=== PATIENT | female | born 1990 | race Caucasian/White ===

== ENCOUNTER 2018-11-05 05:08 | Inpatient (IN) ==
--- NOTE | 2018-10-31 09:57 | EKG Report ---
Test Performed on : 10/31/2018 09:38:27 AM Test Reason : PAT Blood Pressure : / mmHG Vent. Rate : 065 BPM Atrial Rate : 065 BPM P-R Int : 128 ms QRS Dur : 082 ms QT Int : 388 ms P-R-T Axes : -22 028 002 degrees QTc Int : 403 ms Normal sinus rhythm. Normal ECG No previous ECGs available Confirmed by Katrina KILGORE, Kavin Johnson ([id number]) on 11/01/2018 11:59:55 AM
[2018-10-31 10:22] LABS: BASO# 0.02 X1000 (0.0-0.2); BASO% 0.2 % (0.0-0.8); EOS# 0.16 X1000 (0.0-0.7); EOS% 1.4 % (0.0-10.0); HEMATOCRIT 44.2 % (37.0-47.0); HEMOGLOBIN 14.7 g/dL (12.0-16.0); IMM GRAN# 0.02 X1000 (0.0-0.04); IMM GRAN% 0.2 % (0.0-0.5); LYMPH# 1.31 X1000 (1.2-3.4); LYMPH% 11.8 % (20.5-51.1); MCH 34.9 PG (27-31); MCHC 33.3 g/dL (33-37); MONO# 0.61 X1000 (0.11-0.59); MONO% 5.5 % (1.7-9.3); MPV 9.6 FL (7.4-10.4); NEUT% 80.9 % (42.2-75.2); PLT 326 X1000 (130-400); RBC 4.21 XMIL (4.2-5.4); RDW 11.2 % (11.5-14.5); WBC 11.12 X1000 (4.8-10.8)
[2018-11-05] MEDS ORDERED: PEPCID ONE (05:37)
[2018-11-05] MEDS ORDERED: KEFZOL 1 GM/D5W 1 GM/50 ML IVPB ONE (05:37)
[2018-11-05] MEDS ORDERED: LR 1,000 ML ONE ×3 (05:37→09:46)
[2018-11-05] MEDS ORDERED: REGLAN ONE (05:37)
[2018-11-05] MEDS ORDERED: FENTANYL ONE ×2 (06:08→07:27)
[2018-11-05] MEDS ORDERED: VERSED ONE (06:08)
[2018-11-05] MEDS ORDERED: DIPRIVAN 1% ONE (06:09)
[2018-11-05] MEDS ORDERED: MARCAINE 0.25% PF/EPI 1:200,000 ONE (06:28)
[2018-11-05] MEDS ORDERED: SODIUM CHLORIDE 0.9% ONE (06:29)
[2018-11-05] MEDS ORDERED: VALIUM ONE (06:47)
[2018-11-05] MEDS ORDERED: DECADRON ONE (07:52)
[2018-11-05] MEDS ORDERED: APRESOLINE ONE (07:52)
[2018-11-05] MEDS ORDERED: ZOFRAN ONE (07:52)
[2018-11-05] MEDS ORDERED: QUELICIN (DOSE) ONE (07:52)
[2018-11-05] MEDS ORDERED: XYLOCAINE-MPF 2% ONE (07:52)
--- NOTE | 2018-11-05 08:41 | Diag Imaging Result Doc PS360 ---
OPERATIVE CHOLANGIOGRAM - 11/05/2018 INDICATION: GALLBLADDER DX TECHNIQUE: The exam was performed by the patient's surgeon. Total fluoroscopy time was 48 seconds. One image was obtained. COMPARISON: None FINDINGS: Contrast was apparently infused into the cystic duct. Only a portion of the common bile duct is visible. No obvious obstruction. IMPRESSION: Partial opacification of the common bile duct. Electronically signed by Teddy Carbajal 11/05/2018 8:38 AM
[2018-11-05] MEDS: DILAUDID ONE ×4 (08:51→09:16)
[2018-11-05] MEDS ORDERED: DEMEROL ONE (09:17)
[2018-11-05] MEDS ORDERED: NORCO-7.5 ONE (09:55)
[2018-11-05] MEDS: LR 1,000 ML IV SCH (10:25)
[2018-11-05] MEDS: MORPHINE IV PRN ×2 (12:43→21:40)
[2018-11-05] MEDS: NORCO-7.5 PO PRN ×3 (14:35→21:41)
[2018-11-05] MEDS: NICODERM PATCH TD SCH (14:59)
--- NOTE | 2018-11-05 21:09 | OPERATIVE NOTE ---
PROCEDURE DATE: 11/05/2018 POSTOPERATIVE DIAGNOSIS: Symptomatic cholelithiasis. POSTOPERATIVE DIAGNOSIS: Symptomatic cholelithiasis with purulent cholecystitis PROCEDURE PERFORMED: Laparoscopic cholecystectomy with cholangiogram. ESTIMATED BLOOD LOSS: 20 mL. SPECIMENS: Gallbladder. ANESTHESIA: General. INDICATIONS: A 28-year-old female who has had colicky epigastric abdominal discomfort for some time. Ultrasound shows stones. OPERATIVE FINDINGS: There was a densely inflamed gallbladder with thickened rind, purulent bile within the lumen, and a very foreshortened cystic duct with impacted stone within the infundibulum of the gallbladder. Interpretation of intraoperative cholangiogram showed contrast flow through a short segment of cystic duct that ran parallel to the common bile duct, with filling of the common duct and common hepatic artery. Due to extravasation, we could not get fill of the duodenum. OPERATIVE NOTE: Risks, benefits, and alternatives were discussed with the patient, and she consented to the procedure. Seen preoperatively. Surgical site was confirmed. Was taken to the operating room, placed supine position. General anesthesia induced without complication. All bony prominences were padded. Her abdomen was prepped with chlorhexidine solution, draped in the usual fashion. After time-out, a curvilinear infraumbilical incision was made and carried down to the fascia. The fascia was incised along the midline. The abdomen was entered in a controlled fashion. A 12 mm Vernon trocar was placed under direct visualization. We then placed 3 trocars 5 mm, 1 at the epigastrium, 1 in the midclavicular line off the costal margin, and 1 laterally. The gallbladder was grasped and retracted cephalad. Just through retraction, an opening was made in the gallbladder and purulent bile was expressed. We suctioned this till clear. There were dense omental adhesions that we took down, exposing the infundibulum, which was distorted due to a large stone impacted within the neck, but we were able to retract this then to the patient's right and began scoring the peritoneum and dissecting out the lower third of the gallbladder. Through retraction, we noted avulsion of the infundibulum off the cystic duct. There was no bile leakage from the distal cystic duct, and we were able to identify an opening here. Placed our cholangiogram catheter and confirmed that this was, in fact, an opening in the cystic duct and not the common bile duct. There did not appear to be bile drainage in a retrograde flow, but given the proximity and the densely adherent nature to the common bile duct, we elected to not pursue any clamps as we risked injury to the common duct and right hepatic, as she had a very low bifurcation it appeared on her cholangiogram. Removed the gallbladder from the gallbladder fossa. There were openings made. There was no spillage of stones, but there was purulent bile that was suctioned out. It was placed in EndoCatch bag. There was oozing from the gallbladder fossa, some of which was cauterized, one of which area appeared to course along what is most likely a posterior sector hepatic artery. Prothrombin procoagulant Maria Del Rosario powder was placed in the bed, fully containing hemostasis. Given the purulent nature and inability to fully close the cystic duct, we placed a Bridger drain in the gallbladder fossa, secured it with 2-0 nylon. We noted no bile leakage and no bleeding. Removed remaining trocars, deflated the abdomen, and brought the gallbladder out through the umbilical incision. Closed the fascia with interrupted 0 Vicryl sutures. Skin was closed with 4-0 Monocryl. Counts were correct. I spoke with the family. We plan to keep her tonight for observation. She may need ERCP if bile leak is noted. cc: Mandy Carmen MD
[2018-11-05] MEDS: ZANTAC PO SCH (21:40)
[2018-11-05] MEDS: ZOFRAN IV PRN (22:23)
[2018-11-06] MEDS: MORPHINE IV PRN ×5 (02:27→21:38)
[2018-11-06] MEDS: ZOFRAN IV PRN ×5 (02:28→21:38)
[2018-11-06 06:56] LABS: AGAP 12; CHLORIDE 103 mmol/L (98-107); GLUCOSE 106 mg/dL (70-104); POTASSIUM 4.3 mmol/L (3.5-5.1); SODIUM 137 mmol/L (136-145); TCO2 22 mmol/L (25-35)
[2018-11-06 06:57] LABS: ALB/GLOB RATIO 1.3; ALBUMIN 3.3 g/dL (3.5-5.0); ALKALINE PHOSPHATASE 94 U/L (32-104); BUN 7 mg/dL (8-22); CALCIUM 8.6 mg/dL (8.8-10.2); COSMO 272; CREATININE 0.5 mg/dL (0.5-0.9); ESTIMATED GFR > 60; GOT 33 U/L (10-30); GPT 31 U/L (10-36); TOTAL BILIRUBIN 1.08 mg/dL (0.20-1.00); TOTAL PROTEIN 5.8 g/dL (6.3-8.3)
[2018-11-06 07:04] LABS: BASO# 0.01 X1000 (0.0-0.2); BASO% 0.1 % (0.0-0.8); HEMATOCRIT 38.4 % (37.0-47.0); LYMPH# 1.58 X1000 (1.2-3.4); LYMPH% 12.5 % (20.5-51.1); MCH 36.1 PG (27-31); MCHC 33.9 g/dL (33-37); MCV 106.7 FL (81-99); MONO# 0.88 X1000 (0.11-0.59); MPV 9.9 FL (7.4-10.4); NEUT# 10.14 X1000 (1.4-6.5); NEUT% 80.4 % (42.2-75.2); PLT 305 X1000 (130-400); RDW 11.7 % (11.5-14.5); WBC 12.61 X1000 (4.8-10.8)
[2018-11-06] MEDS: NICODERM PATCH TD SCH (08:57)
[2018-11-06] MEDS: PERIDEX MT SCH ×2 (08:58→21:43)
[2018-11-06] MEDS: ZANTAC PO SCH ×2 (09:03→21:43)
--- NOTE | 2018-11-06 13:11 | GENERAL SURGERY PROGRESS NOTE ---
DATE: 11/06/2018 SUBJECTIVE: Doing okay, sore but appropriate, no fevers. OBJECTIVE: VITAL SIGNS: Pulse in the low 100s. Blood pressure 140/100, oxygen 98%. General: She is alert. No jaundice. Abdomen: Soft, appropriately tender. DANIEL drain is bilious . LABORATORY DATA: White count 12. Hematocrit is 38. Creatinine 0.5, bilirubin is 1.0, AST and ALT 33 and 31, alkaline phosphatase 94. ASSESSMENT AND PLAN: This is a 28-year-old female with purulent cholecystitis. She had a densely adherent cystic duct to the common bile duct and we elected to not pursue definitive closure of this. She has a drain controlling expected bile leak. I have discussed the plan with the patient and Shaun. He plans for ERCP this afternoon to help resolve this is expected leak from a patent cystic duct. Her cholangiogram is okay. We did not get good opacification distally, but I do not suspect that she has distal obstruction. cc: Mandy Carmen MD
--- NOTE | 2018-11-06 14:21 | GASTROENTEROLOGY CONSULTATION ---
DATE: 11/06/2018 REASON FOR CONSULTATION: Request for ERCP. HISTORY OF PRESENT ILLNESS: This is a 28-year-old, female who had laparoscopic cholecystectomy on 11/05/[address] Carmen. Findings showed densely inflamed gallbladder with thickened rind, purulent bile within the lumen, and shortened cystic duct with impacted stone within the infundibulum of the gallbladder. Today, at the time of my evaluation, the patient was awake, in no acute distress. She does report some mild abdominal pain. She currently has a DANIEL drain in place. Her father is at the bedside. PAST MEDICAL HISTORY: Hypertension. PAST SURGICAL HISTORY: Laparoscopic cholecystectomy on 11/04/2018, bilateral breast reduction, and section x1. SOCIAL HISTORY: Alcohol use about twice a week. Tobacco use, half a pack daily. ALLERGIES: No known drug allergies. HOME MEDICATIONS: Tylenol 500 mg every 6 hours as needed, Prinivil 10 mg daily, Zofran every 6 hours as needed, Zantac 150 mg twice a day. REVIEW OF SYSTEMS: Per history of present illness. PHYSICAL EXAMINATION: Vital Signs: Temperature 98.3 degrees, pulse was 115, respirations 16, blood pressure 135/90. General: The patient is awake and alert, in no acute distress. Her father is at the bedside. Respiratory: Lung sounds essentially clear. Cardiovascular: Regular rate and rhythm. Abdomen: Soft. Post operative tenderness with palpation. DANIEL drain with bilious contents. DIAGNOSTIC RESULTS: Laboratory: Hematology: WBC 12.61, hemoglobin 13.0, hematocrit 38.4, MCV 106.7, platelets 305,000. Chemistry: Sodium 137, potassium 4.3, chloride 103, CO2 of 22, BUN 7, creatinine 0.5, glucose 106, calcium 8.6. Total bilirubin 1.08, AST 33, ALT 31, alkaline phosphatase 94. Serum was negative. Operative report from laparoscopic cholecystectomy on 11/05/2018 showed inflamed gallbladder, purulent bile within the lumen, and a shortened cystic duct with impacted stone with inability to close the cystic duct. ASSESSMENT AND PLAN: 1. Recent cholecystectomy. 2. Bile leak, unable to close the cystic duct during surgery, requesting endoscopic retrograde cholangiopancreatography and stent placement. 3. I have discussed endoscopic retrograde cholangiopancreatography procedure along with placing a stent. I have discussed the risks versus benefits of the procedure with the patient. I have also given her an information brochure on the procedure. We will plan to proceed with endoscopic retrograde cholangiopancreatography today, most likely placing a stent. Patient is aware that she will have to have the stent removed in the near future. 4. Further plans will be made according to findings. I have discussed this case with Dr. Dunn. Thank you for this consultation. Dictated by NAFISA Cabrera for Nomi Dunn MD cc: NAFISA Cole MD R. Tyler Harney, MD
[2018-11-06] MEDS: ZOSYN 3.375 GM in NS 50 ML IV SCH ×2 (14:22→21:43)
[2018-11-06] MEDS ORDERED: VERSED ONE (14:54)
[2018-11-06] MEDS ORDERED: DIPRIVAN 1% ONE ×2 (15:11→15:50)
[2018-11-06] MEDS ORDERED: INDOCIN ONE (15:37)
--- NOTE | 2018-11-06 16:24 | Diag Imaging Result Doc PS360 ---
EXAM: ERCP-BILIARY AND PANCREATIC 11/06/2018 HISTORY: bile leak TECHNIQUE: Seven images COMMENT: Apparently there is passage of a stone basket and placement of a stent in the common bile duct. IMPRESSION: Stent placement. Electronically signed by Nick Arvizu 11/06/2018 4:22 PM
--- NOTE | 2018-11-06 19:18 | OPERATIVE NOTE ---
PROCEDURE DATE: 11/06/2018 PROCEDURE: ERCP and stent placement. PREOPERATIVE DIAGNOSIS: Bile leak, status post cholecystectomy. POSTOPERATIVE DIAGNOSIS: 1. Bile leak status post cholecystectomy. 2. Normal pancreatogram. MEDICATION: MAC as per Anesthesia. SCOPE USED: Pentax duodenal scope. HISTORY: This is a 28-year-old white female who has undergone laparoscopic cholecystectomy and there was question of possible bile leak since she has been having bile colored drainage through the DANIEL drain. ERCP was done for stent placement. PROCEDURE DETAILS: Informed consent was obtained from the patient. The procedure, risks, benefits, alternatives were explained in layman's terms. Risks of, but not limited to bleeding, perforation, aspiration, pneumonia and pancreatitis were explained. She understood. All the pertinent questions answered and she agreed to proceed. Patient was brought to the endoscopy unit and premedicated as per Anesthesia. After adequate sedation, while she was lying in left lateral left lateral position the duodenoscope was introduced into the posterior pharynx and advanced manually into the esophagus, through the esophagus, it was advanced to the stomach. Stomach was insufflated. Pylorus identified. Scope was then passed through the pylorus into the duodenal bulb, and then second portion duodenum which appeared to be normal. The major papilla was identified. Using the sphincterotome with the help of a guidewire, first the pancreatic duct was cannulated contrast injected. Pancreatogram revealed no pathology. Then, the common bile duct was cannulated. After deep cannulation, contrast injected. Cholangiogram obtained which revealed no filling defect, but there was a leak right at the cystic duct stump. Intrahepatic duct and the common bile duct otherwise were normal. At this point, I went ahead and proceeded with stent placement. A 10-Zambian, 5 cm long stent that was placed in the distal common bile duct. Good drainage was noted. The scope was then removed. Patient tolerated procedure. No complications noted. Patient was then transferred to the recovery area in a stable condition. IMPRESSION: 1. Bile leaks at the cystic duct stump. The [*]stent placed in the distal common bile duct with good drainage. 2. Pancreatogram normal. PLAN/RECOMMENDATIONS: Continue antibiotic. Continue to observe in the hospital. Once she is stable, she can be discharged and she will follow up at the office in a few weeks. She will have the stent removed in 4-6 weeks. I have explained the findings and plan to the patient's family members. They understood. All the pertinent questions answered. cc: MD Mandy Parmar MD
[2018-11-06] MEDS: LR 1,000 ML IV SCH (20:59)
[2018-11-07] MEDS: MORPHINE IV PRN ×6 (01:35→22:30)
[2018-11-07] MEDS: ZOFRAN IV PRN ×6 (01:36→22:30)
[2018-11-07] MEDS: LR 1,000 ML IV SCH ×2 (03:23→05:40)
[2018-11-07] MEDS: ZOSYN 3.375 GM in NS 50 ML IV SCH ×4 (03:26→20:14)
[2018-11-07 08:12] LABS: AGAP 11; ALB/GLOB RATIO 1.3; ALKALINE PHOSPHATASE 87 U/L (32-104); BUN 8 mg/dL (8-22); CALCIUM 8.3 mg/dL (8.8-10.2); CHLORIDE 104 mmol/L (98-107); COSMO 270; CREATININE 0.4 mg/dL (0.5-0.9); ESTIMATED GFR > 60; GLUCOSE 96 mg/dL (70-104); GOT 42 U/L (10-30); GPT 27 U/L (10-36); POTASSIUM 3.8 mmol/L (3.5-5.1); SODIUM 136 mmol/L (136-145); TCO2 21 mmol/L (25-35); TOTAL BILIRUBIN 1.56 mg/dL (0.20-1.00); TOTAL PROTEIN 5.4 g/dL (6.3-8.3)
[2018-11-07 08:20] LABS: LIPASE 2077 U/L (13-60)
[2018-11-07] MEDS: NICODERM PATCH TD SCH (10:04)
[2018-11-07] MEDS: PERIDEX MT SCH ×2 (10:04→20:14)
[2018-11-07] MEDS: ZANTAC PO SCH ×2 (10:05→20:15)
[2018-11-07] MEDS: NORCO-7.5 PO PRN ×3 (12:09→20:14)
--- NOTE | 2018-11-07 13:26 | GASTROENTEROLOGY PROGRESS NOTE ---
DATE: 11/07/2018 SUBJECTIVE: Patient reports having nausea and vomiting during the night. She is complaining of abdominal pain. She had a ERCP yesterday that showed bile leaks at the cystic duct stump. A stent was placed in the common bile duct. Pancreatogram was normal. OBJECTIVE: Vital Signs: Temperature 98.8 degrees, pulse 101, respirations 20, blood pressure 122/72. Generally: Patient is awake and alert. She is complaining of nausea, vomiting and abdominal pain. Abdomen: Tender. Laparoscopic incisions intact. DANIEL drain in place. LABORATORY: Chemistry: Sodium 136, potassium 3.8, chloride 104, BUN 8, creatinine 0.4, total bilirubin 1.56. AST 42, ALT 2. Alkaline phosphatase 87, lipase was 2077. ASSESSMENT AND PLAN: 1. Bile leak status post cholecystectomy, endoscopic retrograde cholangiopancreatography and stent placement done yesterday 11/06/2018. 2. Pancreatitis post endoscopic retrograde cholangiopancreatography. We will move from clear liquids to NPO except for ice chips and sips of water. Continue symptomatic treatment and supportive care. We will continue to follow. Other plans to be made according to her progress. Once discharged, she will need to follow up in the office to have her stent removed in 4 to 6 weeks. I have discussed this case with Dr. Dunn. Dictated by NAFISA Cabrera for Nomi Dunn MD cc: NAFISA Cole MD R. Tyler Harney, MD
--- NOTE | 2018-11-07 19:01 | GENERAL SURGERY PROGRESS NOTE ---
DATE: 11/07/2018 SUBJECTIVE: She is having some epigastric pain radiating to her back. LABORATORY DATA: Lipase was elevated. LFTs are about the same, maybe a slight increase in bilirubin at 1.56. White count was not obtained this morning. OBJECTIVE: Drainage has become more serosanguineous. Abdomen is otherwise soft. She is afebrile. Occasional low-grade tachycardia. ASSESSMENT AND PLAN: A 28-year-old female with purulent cholecystitis, very short segment of cystic duct related to a distorted infundibulum and impacted stone within the gallbladder neck; dense inflammatory changes between the cystic duct and common bile duct, limiting ability to close. She is anticipated to develop bile in her drain postoperatively, and has undergone an endoscopic retrograde cholangiopancreatography now with some postendoscopic retrograde cholangiopancreatography pancreatitis. We will continue her on bowel rest, intravenous fluids, monitoring today. If she feels better, plan for maybe home tomorrow. We do have her on Zosyn, pain control. She is out of bed and ambulating. cc: Mandy Carmen MD
[2018-11-08] MEDS: NORCO-7.5 PO PRN ×3 (00:22→13:05)
[2018-11-08] MEDS: LR 1,000 ML IV SCH ×3 (00:43→05:47)
[2018-11-08] MEDS: ZOSYN 3.375 GM in NS 50 ML IV SCH ×2 (02:24→08:20)
[2018-11-08] MEDS: MORPHINE IV PRN ×3 (02:25→13:11)
[2018-11-08] MEDS: ZOFRAN IV PRN ×3 (02:30→10:30)
[2018-11-08 06:57] LABS: AGAP 11; ALBUMIN 2.9 g/dL (3.5-5.0); BUN 4 mg/dL (8-22); CALCIUM 8.2 mg/dL (8.8-10.2); CHLORIDE 101 mmol/L (98-107); COSMO 266; CREATININE 0.4 mg/dL (0.5-0.9); ESTIMATED GFR > 60; GLUCOSE 79 mg/dL (70-104); POTASSIUM 3.7 mmol/L (3.5-5.1); SODIUM 135 mmol/L (136-145); TCO2 23 mmol/L (25-35); TOTAL BILIRUBIN 1.31 mg/dL (0.20-1.00); TOTAL PROTEIN 5.7 g/dL (6.3-8.3)
[2018-11-08 06:58] LABS: ALKALINE PHOSPHATASE 85 U/L (32-104); AMYLASE 881 U/L (20-200); GOT 25 U/L (10-30); GPT 26 U/L (10-36)
[2018-11-08 07:03] LABS: LIPASE 961 U/L (13-60)
[2018-11-08] MEDS: ZANTAC PO SCH (08:20)
[2018-11-08] MEDS: PERIDEX MT SCH (08:20)
[2018-11-08 11:58] VITALS: BP 147/87
[2018-11-08] MEDS: NICODERM PATCH TD SCH (12:50)
--- NOTE | 2018-11-08 15:21 | GASTROENTEROLOGY PROGRESS NOTE ---
DATE: 11/08/2018 At the time of my evaluation, patient was walking in the hallway. She states her symptoms have improved. She was able to tolerate small amount of full liquid diet this morning. OBJECTIVE: Vital Signs: Temperature 99.1 degrees, pulse 100, respirations 18, blood pressure 147/87. General: Patient is awake, alert, in no acute distress. She is walking in the hallway. LABORATORY: Total bilirubin 1.31, AST 25, ALT 26, alkaline phosphatase 85, amylase 881. Lipase 961. ASSESSMENT AND PLAN: 1. Bile leak status post cholecystectomy. ERCP done with stent placement on 11/06/2018. 2. Elevated amylase and lipase, pancreatitis post ERCP. The patient was held NPO yesterday. Her symptoms have improved. Amylase and lipase are still elevated but patient symptoms have improved. She is currently tolerating a full liquid diet. Continue to follow a bland diet for the next several days. She will need to slowly advance her diet related to her symptoms. I have recommended she follow up with us as an outpatient in 2 to 3 weeks and we will anticipate ERCP with stent removal in 4 to 6 weeks. She may be discharged today depending on Dr. Carmen's recommendations. We will continue to follow during her hospital course and follow up with her after discharge. I have discussed this case with Dr. Dunn. Dictated by NAFISA Cabrera for Nomi Dunn MD cc: NAFISA Cole MD R. Tyler Harney, MD
--- NOTE | 2018-11-08 22:16 | DISCHARGE SUMMARY ---
ADMISSION DATE: 11/07/2018 DISCHARGE DATE: 11/08/2018 ADMITTING DIAGNOSIS: Symptomatic cholecystitis. DISCHARGE DIAGNOSIS: Purulent cholecystitis. PROCEDURE PERFORMED: 1. Laparoscopic cholecystectomy with cholangiogram. 2. Endoscopic retrograde cholangiopancreatography, Dr. Dunn. HISTORY OF PRESENT ILLNESS: This is a 28-year-old female who has had persistent, severe abdominal pain over several weeks. She came to my office, found to have gallstones, and was taken electively for cholecystectomy. HOSPITAL COURSE: Patient was seen preoperatively and was cleared by Anesthesia for the above procedure. For details, please see dictated operative note. Postoperatively, she was admitted, given the purulent nature of her cholecystitis, for ongoing antibiotic therapy. She also had an intentionally nonclosed cystic duct due to her anatomy and plans for ERCP. She did have some bile that was in her drain. Bilirubin remained about normal. AST and ALT downtrended. She underwent her ERCP on the day following her operation. The following day, she had some abdominal discomfort and elevation of her lipase, consistent with pancreatitis, and that improved with bowel rest. She tolerated a diet. She had no further fevers. Her abdomen was soft and incision was intact. DANIEL drain mostly serosanguineous with some bile tinge, but her bilirubin was down to 1.31 with lipase down to 961. AST, ALT, and alkaline phosphatase were normal. She was felt safe for discharge home as she was feeling well. She can see me back in the office Sunday or Sunday to evaluate for drain removal. I have given her a prescription for Percocet, Colace, and Zofran. Discharge instructions were given in written and verbal formats. cc: Mandy Carmen MD
== END 2018-11-08 14:39 | disposition home or self-care (01) | DRG 417 ==
LOC: OR 05:08 → 4N 05:08
PROVIDERS: ADMIT Surgery; ATTEND Surgery
PROC: EN.ERCP (2018-11-06 15:30)
CPT/HCPCS: 74300; 74330; 80053; 82150; 83690; 84703; 85025; 88304; 93005; 93010; 94761; 94799; A9270; C1751; J0330; J0360; J0690; J1100; J1170; J2175; J2250; J2270; J2405; J2543; J3010; J7120; Q9966; Q9967

== ENCOUNTER 2018-11-08 20:41 | Inpatient (IN) ==
[2018-11-08] MEDS ORDERED: ZOFRAN IV ONE (21:13)
[2018-11-08] MEDS ORDERED: NS 1,000 ML IV ONE ×2 (21:13→22:33)
[2018-11-08] MEDS ORDERED: MORPHINE IV ONE (21:14)
[2018-11-08] MEDS ORDERED: PHENERGAN IV ONE (21:24)
[2018-11-08] MEDS ORDERED: SODIUM CHLORIDE 0.9% INJ ONE (21:24)
[2018-11-08 22:20] LABS: BASO# 0.02 X1000 (0.0-0.2); BASO% 0.1 % (0.0-0.8); EOS# 0.06 X1000 (0.0-0.7); EOS% 0.3 % (0.0-10.0); HEMATOCRIT 37.7 % (37.0-47.0); IMM GRAN# 0.05 X1000 (0.0-0.04); IMM GRAN% 0.3 % (0.0-0.5); LYMPH# 1.01 X1000 (1.2-3.4); LYMPH% 5.2 % (20.5-51.1); MCH 35.4 PG (27-31); MCHC 34.5 g/dL (33-37); MCV 102.7 FL (81-99); MONO# 1.42 X1000 (0.11-0.59); MONO% 7.4 % (1.7-9.3); MPV 9.6 FL (7.4-10.4); NEUT# 16.74 X1000 (1.4-6.5); NEUT% 86.7 % (42.2-75.2); PLT 258 X1000 (130-400); RBC 3.67 XMIL (4.2-5.4); RDW 10.9 % (11.5-14.5)
[2018-11-08] MEDS ORDERED: VANCOMYCIN 1 GM/NS 1 GM/250 ML IVPB IV ONE (22:27)
[2018-11-08] MEDS ORDERED: ZOSYN 3.375 GM in NS 50 ML IV ONE (22:27)
--- NOTE | 2018-11-08 22:43 | PROVIDER DOCUMENTATION ---
This chart was entered by Meliza Iglesias Scribe, acting as scribe for Gopi Posey MD. HPI-General Adult - General Chief Complaint: Post Op Complaint Stated Complaint: POST-OP/VOMITING, FEEL'S BAD Time Seen by Provider: 11/08/18 21:03 Source: patient Allergies/Adverse Reactions: Patient Allergies Allergy/AdvReac Type Severity Reaction Status Date / Time No Known Allergies Allergy Verified 10/31/18 09:40 Home Medications: Home Medication List Medication Instructions Recorded Confirmed Last Taken Type Acetaminophen [Tylenol] 500 mg PO Q6H PRN PRN 10/31/18 11/08/18 11/04/18 History LISINOpril [Prinivil] 10 mg PO DAILY 10/31/18 11/08/18 11/02/18 History Ranitidine [Zantac] 150 mg PO BID 10/31/18 11/08/18 11/03/18 History Docusate Sodium [Colace] 100 mg PO BID #30 cap 11/08/18 11/08/18 Unknown Rx Ondansetron HCl [Zofran] 4 mg PO Q4H PRN #10 tab 11/08/18 11/08/18 Unknown Rx Oxycodone HCl/Acetaminophen 1 ea PO Q6H PRN #30 tab 11/08/18 11/08/18 Unknown Rx [Percocet 5-325 mg Tablet] - History of Present Illness -Gen Adult Nature of Presenting Problems: Pt is 28/F presenting to ED w/ Post/op complaint. Pt had gallbladder taken out on Sunday and had a stent and drain put in. She was told that she may also have pancreatitis. She is here now because she is in pain and has also been vomiting. She was released from hospital just today and sts that she just wants to get readmitted. Location of Pain/Injury: reports: abdomen Pain Radiation: reports: no radiation Quality of Pain: reports: aching Severity: reports: moderate Onset/Duration: reports: just prior to arrival Timing: reports: still present Context/Activities at Onset: reports: none Modifying Factors: improves with: nothing Associated Symptoms: reports: nausea, vomiting. denies: cough, fever/chills Similar Symptoms Previously?: Yes Recently seen or treated by another doctor?: Yes Review of Systems - Adult - REVIEW OF SYSTEMS - ADULT Constitutional: denies: chills, fever Eyes: reports: no symptoms reported Ears, Nose, Mouth & Throat: reports: no symptoms reported Cardiovascular: reports: no symptoms reported Respiratory: reports: no symptoms reported Gastrointestinal: reports: abdominal pain, nausea, vomiting. denies: diarrhea Genitourinary: reports: no symptoms reported Musculoskeletal: reports: no symptoms reported Integumentary: reports: no symptoms reported Neurological: reports: no symptoms reported. denies: dizziness/vertigo, headache/migraines Psychiatric: reports: no symptoms reported Endocrine: reports: no symptoms reported Hematologic/Lymphatic: reports: no symptoms reported Allergic/Immunologic: reports: no symptoms reported All Other Systems: Reviewed and Negative Past History - Adult - PAST MEDICAL HISTORY-ADULT Review of Records: reports: Old Records Reviewed, Nursing Assessment Review, Medications Reviewed, Social history reviewed & non-contributory. Major Childhood Illnesses: reports: denies history Cardiovascular: reports: HTN (diet control) Respiratory: reports: denies history Gastrointestinal: reports: denies history Obstetrical/Gynecological: reports: denies history Genitourinary: reports: denies history Musculoskeletal: reports: denies history Neurological: reports: denies history Endocrine/Immune: reports: denies history Other Conditions: reports: denies history - PRIOR SURGERIES/PROCEDURES Surgical/Procedure History: reports: , tonsillectomy, breast (augmentation) - IMMUNIZATION STATUS Childhood Immunizations: See Nurse Assessment Flu Vaccine: See Nurse Assessment - FAMILY HISTORY Family History: reviewed, not pertinent - SOCIAL HISTORY Smoking: quit greater than 1 year Substance Use: none/never Alcohol Use Frequency: never Living Situation: family Physical Exam-General - PHYSICAL EXAM-ADULT Initial Vital Signs Reviewed: Yes - CONSTITUTIONAL General Appearance: alert, mild distress - EYES Eyes: PERRL/EOMI, pink conjunctivae - HEAD, EARS, NOSE, MOUTH & THROAT HENMT: normocephalic/atraumatic, moist mucous membranes, normal ENT inspection, TMs normal, pharynx normal - NECK Neck: non-tender, full range of motion, supple, normal inspection - RESPIRATORY Respiratory: lungs clear - CARDIOVASCULAR Cardiovascular: tachycardia (134) Progress - PLAN OF CARE/RESULTS Progress/Plan/Lab Results: Vital Signs - 8 hr 11/08/18 20:45 Temperature 98.3 F Pulse Rate 134 H Respiratory Rate 20 Blood Pressure 145/108 O2 Sat by Pulse Oximetry 99 Orders Category Date Time Status Saline Loc NOW Care 11/08/18 21:13 Active CBC WITH ELECTRONIC DIFF [HEME] Stat Lab 11/08/18 21:13 Uncollected COMPREHENSIVE METABOLIC PANEL [CHEM] Stat Lab 11/08/18 21:13 Uncollected LIPASE [CHEM] Stat Lab 11/08/18 21:13 Uncollected UA [URINALYSIS W/POSS RFLX CULT] [URINALYSIS] Stat Lab 11/08/18 21:14 Uncollected 0.9% Sodium Chloride Inj [Ns] 1,000 ml Med 11/08/18 21:13 Active IV 999 mls/hr Morphine Med 11/08/18 21:14 Discontinued 4 mg IV NOW ONE Ondansetron [Zofran] Med 11/08/18 21:13 Discontinued 4 mg IV NOW ONE Promethazine [Phenergan] Med 11/08/18 21:24 Once 25 mg IV NOW ONE Sodium Chloride 0.9% Med 11/08/18 21:24 Once 10 ml INJ NOW ONE A/P: Post op complication, nausea, vomting, abdominal pain, no BM for 5 days, Dr Schuler and Dr mitchell advised of admission. started vanc and zosyn, pain is under control, N/V under control. vitals stable. Result Diagrams: 11/09/18 07:08 11/09/18 07:08 - CONSULTS/PCP/HOSPITALIST Notification #1 *Consult/PCP/Hospitalist*: Dr Schuler Time Discussed: 22:40 Reason/Comments: start antiobiotics and admit Consult Disposition: Admit #2 Consult: Dr Mitchell Time Discussed: 22:40 Consult Disposition: Admit Departure - Departure Date of Disposition Decision: 11/08/18 Time of Disposition Decision: 22:42 DIAGNOSIS: Post-operative complication, Nausea and vomiting, Abdominal pain Disposition: HOME 01 Certified Medical Emergency: Emergent Condition: Stable - Critical Care Note This patient required my direct & personal management of CC.: No Attestation - Physician/ TIFFANY Attestation Patient care was provided by Advanced Practice Provider:: No The physician spent face to face time with patient:: Yes Advanced Practice Provider documentation review:: Supervising physician onsite and consulted in the evaluation and care of this patient. The physician did have a face to face encounter with the patient. This chart was documented by the indicated scribe, (Meliza Iglesias, Scribe) and accurately reflects the services I performed and decisions made by me, Gopi Posey MD, as attested by the provider's signature.
[2018-11-08 22:49] LABS: AGAP 12; ALB/GLOB RATIO 1.3; ALBUMIN 3.1 g/dL (3.5-5.0); ALKALINE PHOSPHATASE 85 U/L (32-104); BUN 3 mg/dL (8-22); CALCIUM 8.1 mg/dL (8.8-10.2); CHLORIDE 104 mmol/L (98-107); COSMO 276; CREATININE 0.3 mg/dL (0.5-0.9); ESTIMATED GFR > 60; GLUCOSE 104 mg/dL (70-104); GOT 22 U/L (10-30); GPT 21 U/L (10-36); LIPASE 507 U/L (13-60); POTASSIUM 4.1 mmol/L (3.5-5.1); SODIUM 140 mmol/L (136-145); TCO2 24 mmol/L (25-35); TOTAL BILIRUBIN 1.14 mg/dL (0.20-1.00); TOTAL PROTEIN 5.5 g/dL (6.3-8.3)
[2018-11-08 23:03] LABS: URINE SOURCE CLEAN CATCH
[2018-11-08 23:17] LABS: UR EPITHELIAL CELLS <10 /HPF (<10); URINE BACTERIA NEGATIVE /HPF; URINE RBC <10 /HPF (<10)
[2018-11-08 23:21] LABS: BILIRUBIN URINE NEGATIVE (NEGATIVE); BLOOD URINE NEGATIVE (NEGATIVE); COLOR YELLOW; GLUCOSE URINE NEGATIVE (NEGATIVE); KETONE URINE 60 mg/dL (NEGATIVE); LEUKOCYTES URINE MODERATE (NEGATIVE); NITRITE URINE NEGATIVE (NEGATIVE); PH URINE 7.5; PROTEIN URINE TRACE mg/dL (NEGATIVE); SP GRAVITY URINE 1.008; TURBIDITY URINE HAZY (CLEAR); UROBILINOGEN URINE NORMAL (NORMAL)
[2018-11-08] MEDS ORDERED: NS 500 ML IV ONE (23:56)
--- NOTE | 2018-11-09 01:09 | HISTORY AND PHYSICAL ---
PRIMARY CARE PHYSICIAN: Letitia Espinoza MD. CHIEF COMPLAINT: Intractable nausea, vomiting, abdominal pain. HISTORY OF PRESENTING ILLNESS: A 28-year-old female without any significant past medical history, who was just recently discharged from the hospital earlier in the morning after treatment for cholecystitis. She underwent laparoscopic cholecystectomy and subsequently developed complications of bile leak. Subsequently, she had an ERCP with stent placed. She states that she went home, and she developed worsening nausea and vomiting that was intractable. Nothing seemed to help. She was having worsening abdominal pain. She returned to the emergency department, and the case was discussed with General Surgery who recommended she be admitted for further evaluation and management. At the time of my examination, the patient denied any headache, fever, chills, chest pain, shortness of breath, or any weight changes but complained of nausea, vomiting, and abdominal pain. PAST MEDICAL HISTORY: None. PAST SURGICAL HISTORY: Status post recent laparoscopic cholecystectomy and ERCP with stent. ALLERGIES: No known drug allergies. MEDICATIONS: Current medications include lisinopril 10 mg p.o. daily, Percocet 5/325 one p.o. q.6 hours, Zantac 150 mg p.o. b.i.d. SOCIAL HISTORY: A [id number] history of smoking. Admits to social alcohol use. Denies any illicit drug use. FAMILY HISTORY: No history of coronary disease. REVIEW OF SYSTEMS: Fourteen-point review of systems is as in HPI. Other systems negative. PHYSICAL EXAMINATION: GENERAL: Cooperative, friendly female. She is resting more comfortably now. VITAL SIGNS: Temperature 98.2 degrees, pulse 134, respirations 20, blood pressure 145/108. HEENT: Atraumatic, normocephalic. Extraocular movements intact. PERRLA. NECK: No masses. CHEST: Clear to auscultation. CARDIOVASCULAR: Regular rate and rhythm. ABDOMEN: Soft. Diffuse tenderness. EXTREMITIES: No edema. NEUROLOGIC: She is awake, alert, oriented x3. GENITOURINARY: No bladder distention. SKIN: Warm. LABORATORIES AND STUDIES: WBCs 19.30, hemoglobin 13.1, hematocrit 37.7, platelets 258,000. Sodium 140, potassium 4.1, chloride 104, CO2 is 24, BUN is 3, creatinine 0.3, glucose is 104. ASSESSMENT: A 28-year-old female who was just recently discharged from the hospital after treatment for cholecystitis. She underwent laparoscopic cholecystectomy with development of a bile leak. Subsequently, a drain was placed. She also underwent endoscopic retrograde cholangiopancreatography with stent placement. The patient went home and developed worsening abdominal pain and intractable nausea and vomiting. She returned to the emergency department. Her case was discussed with General Surgery who recommended the patient be admitted for further management. 1. Status post recent laparoscopic cholecystectomy and endoscopic retrograde cholangiopancreatography with stent. 2. Intractable nausea and vomiting. 3. Pancreatitis. 4. Leukocytosis. PLAN: 1. We will admit patient to medical floor with telemetry. 2. We will keep patient NPO. Continue with supportive treatment with IV fluids, antiemetics, and pain control. 3. We will consult General Surgery. 4. We will continue to monitor laboratories. 5. We will check blood cultures and start patient on IV antibiotics. 6. We will continue to follow and reassess and make further recommendation based on patient's clinical course. cc: Victorino Mitchell MD
[2018-11-09] MEDS: PHENERGAN IV PRN ×3 (02:33→19:58)
[2018-11-09] MEDS: MORPHINE IV PRN ×5 (02:34→19:57)
--- NOTE | 2018-11-09 05:49 | Diag Imaging Result Doc PS360 ---
EXAM: CT ABD/PELVIS W/IV CONT ONLY HISTORY: post op complaint, elevated WBC. nausea and vomiti TECHNIQUE: CT abdomen and pelvis with intravenous contrast COMPARISON: None. FINDINGS: There are breast implants. The gallbladder has been removed. There is a surgical drain in the right upper quadrant. The liver has fatty infiltration. Normal spleen and adrenal glands. There is fluid/edema about the pancreatic body and tail. No pseudocyst. No pancreatic calcifications. A stent is in the common bile duct. Normal kidneys. No hydronephrosis. Normal aorta. No bowel obstruction. No abscess. Normal appendix. The urinary bladder is distended and appears normal. Normal uterus. There is a small amount of free fluid within the pelvis. Neither ovary is enlarged. IMPRESSION: 1.Cholecystectomy with a right upper quadrant surgical drain and a stent in the common bile duct 2.Possible acute pancreatitis. 3.There is fatty infiltration of the liver 4.A preliminary report was given at 12:32 AM This exam was performed using automated exposure control, adjustment of mA or kV according to patient size, and/or use of iterative reconstruction technique. Electronically signed by Ehsan Maldonado 11/09/2018 5:47 AM
--- NOTE | 2018-11-09 07:57 | GENERAL SURGERY PROGRESS NOTE ---
DATE: 11/09/2018 REQUESTING PHYSICIAN: Dr. Mitchell. REASON FOR CONSULTATION: Consult concerning nausea, vomiting, status post laparoscopic cholecystectomy. HISTORY OF PRESENT ILLNESS: A 28-year-old female, who recently had a cholecystectomy by my partner, Dr. Carmen, who subsequently developed a bile leak. She has been status post ERCP. She had a drain. She was actually in the hospital up until yesterday, where she was discharged and came back in relatively quickly with nausea and vomiting. She says her nausea vomiting has improved since then. PAST MEDICAL HISTORY: None. PAST SURGICAL HISTORY: Includes recent cholecystectomy with ERCP. ALLERGIES: None. MEDICATIONS: Reviewed. SOCIAL HISTORY: Current smoker. FAMILY HISTORY: Reviewed with the patient and noncontributory. REVIEW OF SYSTEMS: A full 10-point review of systems obtained, negative as otherwise specified in HPI. PHYSICAL EXAMINATION: Vital Signs: Patient is currently afebrile. Vital signs are stable. General exam: No acute distress. HEENT: Normocephalic, atraumatic. Pupils equal, round, reactive to light. Mucous membranes moist. Oropharynx benign. Neck: Supple. Trachea midline. Cardiovascular: Regular rate and rhythm. Lungs: Grossly clear. Abdomen: Soft, appropriately tender. DANIEL drain in place with bile in the DANIEL drain. Extremities: Moves all extremities. Neurologic: Grossly intact. Skin: No signs of jaundice. Vascular: All extremities perfused. LABORATORY: White blood count is 19, hematocrit 37, bilirubin is 1.14, lipase 500. ASSESSMENT/PLAN: A 28-year-old female with nausea and vomiting, status post cholecystectomy. 1. Nausea and vomiting. At this point, continue current treatment. Continue antinausea medications. This may be related somewhat to her pancreatitis, but I think overall she is improving. 2. Bile leak at this point. She has had an endoscopic retrograde cholangiopancreatography, so we will keep Jeffy-Collins drain in place. This may be contributing to her leukocytosis. CT scan did not show anything consistent with an abscess intra-abdominally. cc: Melvin Schuler MD
[2018-11-09 07:59] LABS: BASO# 0.01 X1000 (0.0-0.2); BASO% 0.1 % (0.0-0.8); EOS# 0.11 X1000 (0.0-0.7); EOS% 0.7 % (0.0-10.0); HEMATOCRIT 37.1 % (37.0-47.0); HEMOGLOBIN 12.4 g/dL (12.0-16.0); IMM GRAN# 0.03 X1000 (0.0-0.04); IMM GRAN% 0.2 % (0.0-0.5); LYMPH% 5.5 % (20.5-51.1); MCH 35.2 PG (27-31); MCHC 33.4 g/dL (33-37); MCV 105.4 FL (81-99); MONO# 1.29 X1000 (0.11-0.59); MONO% 7.9 % (1.7-9.3); MPV 9.8 FL (7.4-10.4); NEUT# 13.92 X1000 (1.4-6.5); NEUT% 85.6 % (42.2-75.2); PLT 253 X1000 (130-400); RBC 3.52 XMIL (4.2-5.4); RDW 11.1 % (11.5-14.5); WBC 16.26 X1000 (4.8-10.8)
[2018-11-09 08:26] LABS: AGAP 12; BUN 3 mg/dL (8-22); CALCIUM 8.1 mg/dL (8.8-10.2); CHLORIDE 103 mmol/L (98-107); COSMO 271; CREATININE 0.3 mg/dL (0.5-0.9); ESTIMATED GFR > 60; GLUCOSE 84 mg/dL (70-104); POTASSIUM 3.2 mmol/L (3.5-5.1); SODIUM 138 mmol/L (136-145); TCO2 23 mmol/L (25-35)
[2018-11-09] MEDS ORDERED: KLOR-CON PO ONE (08:30)
[2018-11-09] MEDS: NS 1,000 ML IV SCH ×2 (09:23→18:08)
[2018-11-09] MEDS: DULCOLAX PR PRN (09:23)
[2018-11-09] MEDS: ZOSYN 3.375 GM in NS 50 ML IV SCH ×4 (09:32→20:14)
[2018-11-09 10:27] LABS: ANISOCYTOSIS 3+; BANDS 1 % (0-1); LYMPHS 6 % (21-51); MONO 8 % (1-9); SEGS 85 % (42-75)
[2018-11-09 12:12] LABS: ALB/GLOB RATIO 1.3; ALBUMIN 2.8 g/dL (3.5-5.0); DIRECT BILIRUBIN 0.5 mg/dL (0.00-0.20); TOTAL BILIRUBIN 0.78 mg/dL (0.20-1.00)
[2018-11-09] MEDS: ZOFRAN IV PRN (15:26)
--- NOTE | 2018-11-09 17:18 | GASTROENTEROLOGY PROGRESS NOTE ---
DATE: 11/09/2018 SUBJECTIVE: 28-year-old who had recent cholecystectomy, bile leak. She had an ERCP with stent placement. She was discharged home yesterday but returned due to continued nausea and vomiting. Currently she states symptoms have improved after receiving medications. OBJECTIVE: Vital Signs: Temperature 99.2 degrees, pulse 105, respirations 20, blood pressure 137/84. General: Patient is awake, alert, no acute distress. She has family at the bedside. Abdomen: With incisions intact. DANIEL drain intact. Mild abdominal tenderness with palpation. LABORATORY: Hematology. WBC 16.26, hemoglobin 12.4, hematocrit 37.1, MCV 105.4, platelets 253,000. Chemistry sodium 138, potassium 3.2, chloride 103, CO2 of 23, BUN 3, creatinine 0.3, glucose 84, calcium 8.1. Liver function test on 11/08 showed total bilirubin 1.14, AST 22, ALT 21, alkaline phosphatase 85, lipase was 507. ASSESSMENT AND PLAN: 1. Recent laparoscopic cholecystectomy with bile leak. 2. ERCP done on 11/06/2018 with stent placement. Patient developed pancreatitis. Her symptoms had improved yesterday and patient wanted to go home. She went home but returned with nausea and vomiting. We will repeat her liver function tests today along with amylase and lipase and repeat tomorrow. Continue symptomatic treatment for nausea and vomiting. Patient currently is tolerating a liquid diet. Will continue to follow. Further plans will be made according to her progress. Repeat amylase, lipase and liver function test in the morning. I have discussed this case with Dr. Dunn. Dictated by NAFISA Cabrera for Nomi Dunn MD cc: NAFISA Cole MD
[2018-11-10] MEDS: MORPHINE IV PRN ×6 (00:47→21:51)
[2018-11-10] MEDS: PHENERGAN IV PRN ×5 (00:47→22:02)
[2018-11-10] MEDS: NS 1,000 ML IV SCH ×2 (00:47→13:02)
[2018-11-10] MEDS: ZOSYN 3.375 GM in NS 50 ML IV SCH ×5 (04:18→23:12)
[2018-11-10] MEDS: PRILOSEC PO SCH (06:12)
[2018-11-10 06:50] LABS: HEMATOCRIT 34.8 % (37.0-47.0); HEMOGLOBIN 11.4 g/dL (12.0-16.0); MCH 35.3 PG (27-31); MCHC 32.8 g/dL (33-37); MCV 107.7 FL (81-99); MPV 9.7 FL (7.4-10.4); RBC 3.23 XMIL (4.2-5.4); RDW 11.2 % (11.5-14.5); WBC 13.12 X1000 (4.8-10.8)
--- NOTE | 2018-11-10 07:17 | GENERAL SURGERY PROGRESS NOTE ---
DATE: 11/10/2018 SUBJECTIVE: Patient seems to be doing okay. Although she was listed as being on a clear liquid diet, she apparently ate a candy bar and Bugle chips. Otherwise, she has been doing okay. She says her nausea has improved. OBJECTIVE: Vital Signs: The patient is currently afebrile. Her vital signs are stable. General Examination: No acute distress. Cardiovascular: Regular rate and rhythm. Lungs: Grossly clear. Abdomen: Soft, nondistended, appropriately tender. DANIEL drain with bilious output. ASSESSMENT AND PLAN: A 28-year-old female with bile leak status post cholecystectomy with nausea and vomiting. Nausea and vomiting. At this time, apparently seems to have improved since the patient was able to take in more than her prescribed diet. We will actually advance her to a regular diet today. We will keep her Jeffy-Collins drain in place and monitor her. cc: Melvin Schuler MD
[2018-11-10 07:23] LABS: MAGNESIUM 1.7 mg/dL (1.5-2.7)
[2018-11-10 07:24] LABS: AGAP 12; ALB/GLOB RATIO 1.3; ALBUMIN 2.8 g/dL (3.5-5.0); ALKALINE PHOSPHATASE 70 U/L (32-104); BUN 3 mg/dL (8-22); CALCIUM 7.5 mg/dL (8.8-10.2); CHLORIDE 106 mmol/L (98-107); COSMO 274; CREATININE 0.3 mg/dL (0.5-0.9); ESTIMATED GFR > 60; GLUCOSE 94 mg/dL (70-104); GOT 11 U/L (10-30); GPT 13 U/L (10-36); POTASSIUM 3.4 mmol/L (3.5-5.1); SODIUM 139 mmol/L (136-145); TCO2 21 mmol/L (25-35); TOTAL BILIRUBIN 0.73 mg/dL (0.20-1.00); TOTAL PROTEIN 4.9 g/dL (6.3-8.3)
[2018-11-10] MEDS: ZOFRAN IV PRN (08:34)
[2018-11-10] MEDS ORDERED: KLOR-CON PO ONE (08:37)
[2018-11-10] MEDS ORDERED: MAGNESIUM SULFATE 2 GM/S.W.I. 2 GM/50 ML IVPB IV ONE (08:37)
[2018-11-10] MEDS: SODIUM CHLORIDE 0.9% INJ PRN ×3 (13:01→22:02)
[2018-11-10] MEDS ORDERED: LOVENOX SUBQ SCH (15:03)
--- NOTE | 2018-11-10 15:03 | GASTROENTEROLOGY PROGRESS NOTE ---
DATE: 11/10/2018 SUBJECTIVE: Ms. Magallon is sitting up in the bed, resting comfortably. She reports no GI symptoms. She has been able to tolerate her meals well. Denies any associated nausea, vomiting, or abdominal pain. She has been ambulating through the hallway without any difficulty. OBJECTIVE: Vital Signs: Temperature 99.1 degrees, pulse was 93 per minute, breathing 20, blood pressure is 143/86. Abdomen: Obese, soft, mildly tender appropriately in the epigastric area, but no rebound tenderness or guarding noted. LABORATORY DATA: Reviewed, which show WBC is down to 13.12, hemoglobin 11.4, hematocrit 34.8. Sodium 139, potassium 3.4, chloride 21, BUN is 3, creatinine 0.3. AST down to 11, ALT 13, alkaline phosphatase 70, total bilirubin was 0.73. Her amylase is 158 and lipase is 61. IMPRESSION: Status post cholecystectomy, bile leak, status post endoscopic retrograde cholangiopancreatography and stent placement. She has recovered from surgery and her endoscopic retrograde cholangiopancreatography with stent placement very well. At this point, no new suggestions. I advised her to advance her diet slowly, and stay on a low-fat diet. Once discharged, she needs to be followed up at the office. She will be scheduled for endoscopic retrograde cholangiopancreatography and stent removal in a few weeks. Advised followup with me in the office, and advised to call us if there is any problem prior to that, and also answered all of their pertinent questions. cc: Nomi Dunn MD
[2018-11-10] MEDS ORDERED: NS 1,000 ML IV SCH (15:04)
--- NOTE | 2018-11-10 15:16 | PROGRESS NOTE ---
DATE: 11/10/2018 SUBJECTIVE: The patient is resting comfortably in bed. Her family is present at the bedside. She states that she ate some of her breakfast this morning. OBJECTIVE: Vital Signs: T-max 99.1, blood pressure 143/86, heart rate 93, respirations 20. O2 sats 100% on room air. General: This is a young female sitting up in bed in no acute distress. Heart: S1, S2 normal. Regular rate and rhythm. Lungs: Clear to auscultation bilaterally. Abdomen: Positive bowel sounds. Soft, nontender, nondistended. Extremities: No edema, no cyanosis. Neurologic: The patient is alert and oriented x 3. LABS: White blood cell count 13, hemoglobin 11, hematocrit 34, platelets 250,000. Sodium 139, potassium 3.4, chloride 106, BUN 3, creatinine 0.3, glucose 94, calcium 7.5, magnesium 1.7, lipase 61, AST 11, ALT 13, alkaline phosphatase 70. ASSESSMENT AND PLAN: 1. Status post laparoscopic cholecystectomy with a bile leak. Management as per the general surgeon. 2. Status post ERCP with stent placement. Improving. GI is following. 3. Pancreatitis. Improved. The patient's diet has been advanced. 4. Leukocytosis. Improved. Continue with antibiotic therapy. 5. DVT prophylaxis. Will start the patient on Lovenox. cc: Valerie Piña MD
[2018-11-10] MEDS: DULCOLAX PR PRN (16:46)
[2018-11-11] MEDS: MORPHINE IV PRN ×4 (03:08→15:20)
[2018-11-11] MEDS: SODIUM CHLORIDE 0.9% INJ PRN (03:12)
[2018-11-11] MEDS: PHENERGAN IV PRN (03:12)
[2018-11-11] MEDS: ZOSYN 3.375 GM in NS 50 ML IV SCH ×2 (05:24→11:21)
[2018-11-11] MEDS: PRILOSEC PO SCH ×2 (05:25→07:53)
[2018-11-11 06:36] LABS: BASO# 0.03 X1000 (0.0-0.2); BASO% 0.3 % (0.0-0.8); EOS# 0.36 X1000 (0.0-0.7); EOS% 3.2 % (0.0-10.0); HEMATOCRIT 34.3 % (37.0-47.0); HEMOGLOBIN 11.4 g/dL (12.0-16.0); IMM GRAN# 0.02 X1000 (0.0-0.04); IMM GRAN% 0.2 % (0.0-0.5); LYMPH# 1.57 X1000 (1.2-3.4); LYMPH% 14.1 % (20.5-51.1); MCH 34.8 PG (27-31); MCHC 33.2 g/dL (33-37); MCV 104.6 FL (81-99); MONO# 1.01 X1000 (0.11-0.59); MONO% 9.1 % (1.7-9.3); MPV 9.7 FL (7.4-10.4); NEUT# 8.16 X1000 (1.4-6.5); NEUT% 73.1 % (42.2-75.2); PLT 301 X1000 (130-400); RBC 3.28 XMIL (4.2-5.4); WBC 11.15 X1000 (4.8-10.8)
[2018-11-11 07:07] LABS: AGAP 11; ALB/GLOB RATIO 0.9; ALBUMIN 2.6 g/dL (3.5-5.0); ALKALINE PHOSPHATASE 103 U/L (32-104); BUN 2 mg/dL (8-22); CALCIUM 8.1 mg/dL (8.8-10.2); CHLORIDE 108 mmol/L (98-107); COSMO 277; CREATININE 0.3 mg/dL (0.5-0.9); ESTIMATED GFR > 60; GLUCOSE 93 mg/dL (70-104); GOT 26 U/L (10-30); GPT 18 U/L (10-36); LIPASE 69 U/L (13-60); MAGNESIUM 1.9 mg/dL (1.5-2.7); PHOSPHORUS 4.2 mg/dL (2.7-4.5); POTASSIUM 3.6 mmol/L (3.5-5.1); SODIUM 141 mmol/L (136-145); TCO2 22 mmol/L (25-35); TOTAL BILIRUBIN 0.52 mg/dL (0.20-1.00); TOTAL PROTEIN 5.6 g/dL (6.3-8.3)
[2018-11-11] MEDS: ZOFRAN IV PRN ×3 (07:15→15:19)
[2018-11-11 14:08] VITALS: BP 149/94
--- NOTE | 2018-11-12 12:48 | DISCHARGE SUMMARY ---
ADMISSION DATE: 11/09/2018 DISCHARGE DATE: 11/11/2018 PRIMARY CARE PHYSICIAN: Dr. Letitia Espinoza. GENERAL SURGEON: Dr. Thomas Carmen. GI: Dr. Dunn. ADMISSION DIAGNOSES: 1. Status post recent laparoscopic cholecystectomy and ERCP with stent. 2. Intractable nausea and vomiting. 3. Pancreatitis. 4. Leukocytosis. DISCHARGE DIAGNOSES: 1. Status post laparoscopic cholecystectomy with a bile leak. 2. Status post ERCP with stent placement. 3. Pancreatitis, improved. 4. Leukocytosis, resolved. SUMMARY OF FINDINGS: This is a 28-year-old female who had been discharged from the hospital earlier that morning after treatment for a cholecystitis. Had undergone a laparoscopic cholecystectomy and subsequently developed complication of a bile leak. Had had an ERCP and stent placed. States that she went home, developed worsening nausea and vomiting that was intractable, nothing seemed to help, had worsening abdominal pain. She came back to the emergency room and was admitted. We did consult Surgery and GI to follow along. On admission her lipase was noted to be 507. She slowly improved and advanced her diet up to tolerate a regular diet and it is now felt that she can be safely discharged home. DISCHARGE MEDICATIONS: Colace 100 mg p.o. b.i.d., Prinivil 10 mg p.o. daily, Zofran 4 mg p.o. q.4.h. p.r.n., Percocet 5 one p.o. q.6.h. p.r.n., Zantac 150 mg p.o. b.i.d. FOLLOWUP: She is to follow up with Dr. Carmen on 11/15/2018 at 2:00 p.m., with Dr. Dunn on 12/03/2018 at 2:15 p.m. and with her primary care physician in the next one to two weeks and call their office for an appointment. Time spent on discharge was 35 minutes. Dictated by NAFISA Duggan for Valerie Piña MD cc: NAFISA Duggan MD Marlin D. Gill, MD R. Tyler Harney, MD Khurshid Yousuf, MD
--- NOTE | 2018-11-13 15:19 | GASTROENTEROLOGY PROGRESS NOTE ---
DATE: 11/11/2018 SUBJECTIVE: The patient states she feels much better. She is tolerating her diet. She is wanting to go home. She has her DANIEL drain in place with clear drainage noted. OBJECTIVE: Vital Signs: Temperature 98.6, pulse 83, respirations 18, blood pressure 145/90. General: The patient is awake, in no acute distress. Abdomen: With laparoscopic incisions open to air. DANIEL drain intact. LABORATORY: Hematology: WBC 11.15, hemoglobin 11.4, hematocrit 34.3. MCV 104.6, platelets 301. Chemistry: Sodium 141, potassium 3.6, chloride 108. CO2 is 22, BUN 2, creatinine 0.3, glucose 93. Total bilirubin 0.52, AST 26, ALT 18, alkaline phosphatase 103. Lipase 69. ASSESSMENT/PLAN: 1. Status post laparoscopic cholecystectomy with bile leak. 2. Status post endoscopic retrograde cholangiopancreatography with stent placement. 3. Pancreatitis, status post endoscopic retrograde cholangiopancreatography. Her numbers have improved. She is tolerating a diet. Recommend patient follow a low-fat diet. She will need to follow up with us as an outpatient in several weeks to have her endoscopic retrograde cholangiopancreatography and stent removal scheduled. As far as gastroenterology is concerned, she could be discharged home when able. I have discussed this case with Dr. Dunn. Dictated by NAFISA Cabrera for Nomi Dunn MD cc: NAFISA Cole MD
== END 2018-11-11 15:29 | disposition home or self-care (01) | DRG 393 ==
LOC: ED 20:41 → SUATTDRO 11-09 00:01 → 3N 11-09 00:01 → 4N 11-09 08:42
PROVIDERS: ATTEND Internal Medicine
CPT/HCPCS: 74177; 80048; 80053; 80076; 81001; 81025; 82150; 83605; 83690; 83735; 84100; 85025; 85027; 87040; 87088; 96361; 96365; 96366; 96367; 96375; 99285; A9270; J1650; J2270; J2405; J2543; J2550; J3370; J3475; J7030; J7040; Q9967